=== PATIENT | male | born 1955 | race Two or more races ===

== ENCOUNTER 2020-12-07 19:08 | Inpatient (IN) | payer OTHER ==
[~2020-12-07] VITALS: Ht 167.6 cm; Wt 77.1 kg
[2020-12-07] MEDS ORDERED: ELIQUIS2.5 MG (19:18)
[2020-12-07] MEDS ORDERED: AMIODARONE HCL100 MG (19:18)
[2020-12-07] MEDS ORDERED: TOPROL XL25 MG (19:18)
[2020-12-07] MEDS ORDERED: CLONAZEPAM0.5 M1 (20:39)
[2020-12-07] MEDS ORDERED: MUPIROCIN15 GM (20:40)
[2020-12-07] MEDS ORDERED: MITIGARE0.6 MG (20:40)
[2020-12-07] MEDS ORDERED: XANAX1 MG (20:40)
[2021-01-02] MEDS ORDERED: ELIQUIS2.5 MG PO (13:33)
[2021-01-02] MEDS ORDERED: LOPRESSOR25 MG PO (13:35)
[2021-01-02] MEDS ORDERED: PRE PROTEIN1 EACH PO (13:36)
[2021-01-02] MEDS ORDERED: PROTONIX40 MG PO (13:37)
[2021-01-02] MEDS ORDERED: INTESTINEX680 M1 PO (13:37)
[2021-01-02] MEDS ORDERED: FOLIC ACID1 MG PO (13:38)
[2021-01-02] MEDS ORDERED: VITAMIN D3125 MC2 PO (13:38)
[2021-01-02] MEDS ORDERED: LIDODERM1 EACH TOP (13:38)
[2021-01-02] MEDS ORDERED: THIAMINE HCL100 MG PO (13:39)
[2021-01-02] MEDS ORDERED: CLONAZEPAM1 MG PO (13:40)
[2021-01-02] MEDS ORDERED: Neurin-Sl Tablet Sl SL (13:40)
[2021-01-02] MEDS ORDERED: B Complex CAPSULE PO (13:40)
[2021-01-02] MEDS ORDERED: ELIQUIS5 MG PO (13:48)
[2021-01-02] MEDS ORDERED: NEURONTIN600 MG PO (14:00)
[2021-01-02] MEDS ORDERED: GABAPENTIN100 MG PO (14:01)
== END 2021-01-03 19:46 | DRG 871 ==
LOC: ER → ICU-2 12-08 11:04 → SURH 12-19 12:16
PROVIDERS: ADMIT Internal Medicine; ATTEND Internal Medicine
PROC: B020ZZZ Computerized Tomography (CT Scan) of Brain (ICD-10-PCS; principal; 2020-12-08)
PROC: B24BZZZ Ultrasonography of Heart with Aorta (ICD-10-PCS; 2020-12-08)
PROC: BW28ZZZ Computerized Tomography (CT Scan) of Head (ICD-10-PCS; 2020-12-08)
PROC: B348ZZZ Ultrasonography of Bilateral Internal Carotid Arteries (ICD-10-PCS; 2020-12-09)
PROC: 3E0F7SF Introduction of Other Gas into Respiratory Tract, Via Natural or Artificial Opening (ICD-10-PCS; 2020-12-10)
PROC: 5A09457 Assistance with Respiratory Ventilation, 24-96 Consecutive Hours, Continuous Positive Airway Pressure (ICD-10-PCS; 2020-12-10)
PROC: 30233N1 Transfusion of Nonautologous Red Blood Cells into Peripheral Vein, Percutaneous Approach (ICD-10-PCS; 2020-12-11)
PROC: 4A033R1 Measurement of Arterial Saturation, Peripheral, Percutaneous Approach (ICD-10-PCS; 2020-12-12)
PROC: B03BZZZ Magnetic Resonance Imaging (MRI) of Spinal Cord (ICD-10-PCS; 2020-12-12)
PROC: BF37ZZZ Magnetic Resonance Imaging (MRI) of Pancreas (ICD-10-PCS; 2020-12-13)
PROC: 4A12X4Z Monitoring of Cardiac Electrical Activity, External Approach (ICD-10-PCS; 2020-12-19)
DX: A41.51 Sepsis due to Escherichia coli [E. coli] (principal); G93.41 Metabolic encephalopathy; I47.1 Supraventricular tachycardia; E87.2 Acidosis; F33.8 Other recurrent depressive disorders; K80.00 Calculus of gallbladder with acute cholecystitis without obstruction; Z20.822 Contact with and (suspected) exposure to COVID-19; F10.20 Alcohol dependence, uncomplicated; K70.9 Alcoholic liver disease, unspecified; D69.59 Other secondary thrombocytopenia; E53.8 Deficiency of other specified B group vitamins; S32.018G Other fracture of first lumbar vertebra, subsequent encounter for fracture with delayed healing; D53.1 Other megaloblastic anemias, not elsewhere classified
CPT/HCPCS: 70553; 72158

== ENCOUNTER 2022-02-10 10:21 | Outpatient (CLI) | payer OTHER ==
[~2022-02-10 10:21] MED LIST: AMIODARONE HCL100 MG; B Complex CAPSULE PO; CLONAZEPAM0.5 M1; CLONAZEPAM1 MG PO; ELIQUIS2.5 MG; ELIQUIS2.5 MG PO; ELIQUIS5 MG PO; FOLIC ACID1 MG PO; GABAPENTIN100 MG PO; INTESTINEX680 M1 PO; LIDODERM1 EACH TOP; LOPRESSOR25 MG PO; MITIGARE0.6 MG; MUPIROCIN15 GM; NEURONTIN600 MG PO; Neurin-Sl Tablet Sl SL; PRE PROTEIN1 EACH PO; PROTONIX40 MG PO; THIAMINE HCL100 MG PO; TOPROL XL25 MG; VITAMIN D3125 MC2 PO; XANAX1 MG
== END 2022-02-10 10:32 | disposition home or self-care (01) ==
LOC: SONOGRAMA 10:21
PROVIDERS: ATTEND Internal Medicine Rheumatology
DX: K76.0 Fatty (change of) liver, not elsewhere classified (principal)